=== PATIENT | male | born 1965 ===

== ENCOUNTER 2024-10-17 14:40 | Emergency (ER) | payer OTHER, SELFPAY ==
[2024-10-17 14:48] VITALS: BP 135/62; PULSE 59; RESP 20; TEMP 36.7; O2SAT 98
--- NOTE | 2024-10-17 15:00 | DI.CT_ITS ---
Exam(s) CT HEAD CERVICAL SPINE WO EXAM: CT HEAD CERVICAL SPINE WO CLINICAL HISTORY: anticoagulation, hit head, neck stiffness. TECHNIQUE: Imaging Protocol: Axial computed tomography images with coronal and sagittal reformatted images were created and reviewed COMPARISON: No exams were available for comparison FINDINGS: BRAIN: There is symmetrical developmental thinning of the skull in both parietal regions. There are no skull fractures. There are surgical defects in the medial vasquez of both maxillary sinus es. Right maxillary sinus is clear. There is some mucosal thickening and a small amount of fluid in the left maxillary sinus. Sphenoid and frontal sinuses are clear as are the ethmoidal air cells and mastoid air cells. There is no evidence of intracranial hemorrhage, mass effect, or shift of midline structures. There are no extra-axial fluid collections. The ventricles are not enlarged or shifted and there is no blo od within the ventricular system nor within the basal cisterns. CERVICAL SPINE: There is no evidence of fracture nor listhesis. No significant prevertebral soft tissue swelling. Chronic disc space narrowing at C5-6 and C6-7 levels and Luschka joint osteophytes are noted bilatera lly at these 2 levels as well as smaller Luschka joint osteophytes at C4-5 level. There are advanced degenerative changes in the left facet joints at C4-5. There is no significant facet joint malalignment. No significant osseous lesions evident. IMPRESSION: No acute intracranial findings on this noninfused CT scan of the brain.No acute fractures Paranasal sinus findings as described above. No evidence of cervical spine fracture, malalignment, nor acute compromise of the cervical spinal can al. Multilevel degenerate disc disease and facet arthropathy changes. No fractures Report called by myself to ER 10/17/2024 at 4:05 p.m. RADIATION DOSE DELIVERED: 1,236.23mGy.cm Total DLP DATA REPOSITORY: All CT scans at this facility are submitted to the National Radiology Data Registry (NRDR) Dose Index Registry (DIR) with the [employer] ([employer]). RADIATION OPTIMIZATION: All CT scans at this facility use at least one of these dose optimization te chniques: automated exposure control; mA and/or kV adjustment per patient size (includes targeted exa ms where dose is matched to clinical indication); or iterative reconstruction.
--- NOTE | 2024-10-17 15:07 | ED.GENADUL_ITS ---
Discharge Plan Disposition Patient Disposition: Home Condition: Stable Discharge Details Clinical Impression: Blunt head trauma Primary Care Provider: Peter Brewster ED Provider: Jaswinder Brownlee Home Meds and New Rx's Prescriptions: Continued Eliquis 5 mg tablet 5 mg PO BID Discharge Instructions Instructions: Laceration Repair With Glue ED Additional Instructions: Your imaging did not show any concerning findings, there was no bleeding in the brain. If you are noticing persistent headaches follow-up with your primary care provider. If you feel more ill, have severe worsening pain in your head or high fevers return to the emergency department for reevaluation HPI General Mode of arrival: ambulatory . Date/Time Provider Initiated Documentation: 10/17/24 14:53 . Limitations to Documentation: no limitations . Information obtained by: patient . History of Present Illness 59 year old M presents to the emergency department with the chief complaint of hit on head by ice, described as mild, Quality is described as aching, Patient started experiencing this hour(s) (1) and it has been constant. No relieving factors improve symptom(s), No exacerbating factors reported . Patient notes denies chest pain and shortness of breath. Patient did receive the following treatments prior to arrival, none Related Data Home Medications ?Medication ?Instructions ?Recorded ?Confirmed apixaban 5 mg tablet (Eliquis) 5 mg PO BID 05/04/22 10/17/24 Allergies Allergy/AdvReac Type Severity Reaction Status Date / Time No Known Allergies Allergy Verified 10/17/24 14:51 General Stated Complaint: HeadInjury ROYCE: 3 Review of Systems All systems reviewed & are unremarkable except as noted in HPI and below Constitutional Constitutional: Denies chills, Denies fever(s) and Denies weakness Cardiovascular Cardiovascular: Denies chest pain and Denies dyspnea Respiratory Respiratory: Denies cough and Denies dyspnea Gastrointestinal Gastrointestinal: Denies abdominal pain, Denies nausea and Denies vomiting Integumentary/Breasts Skin/Breast: Denies rash Neurologic Neurologic: Denies weakness Exam Const General: no acute distress Orientation: alert HENMT Head: no palpable skull fracture Ears: external ears normal General nose exam: external nose normal Mouth: moist mucous membranes Eyes General: appearance normal, both eyes and all related structures Conjunctivae: conjunctivae normal Pupils: PERRL Neck Neck: normal visual inspection Resp Effort & Inspection: normal respiratory effort and able to speak in complete sentences Cardio Rate: regular rate GI Palpation: soft and nontender Back/Spine/Pelvis Thoracic/Lumbar Spine: No thoracic spinal tenderness and No lumbar spinal tenderness Skin General skin exam: no rashes or lesions noted Neuro General: patient alert and patient oriented x3 Extrem General: normal to inspection Psych Mental Status: mental status grossly normal Course Vital Signs Vital signs: Vital Signs Temperature 36.7 C 10/17/24 14:48 Pulse 59 L 10/17/24 14:48 Respiratory Rate 20 10/17/24 14:48 Blood Pressure 135/62 10/17/24 14:48 Pulse Oximetry 98 10/17/24 14:48 Temperature 36.7 C 10/17/24 14:48 Pulse 59 L 10/17/24 14:48 Respiratory Rate 20 10/17/24 14:48 Blood Pressure 135/62 10/17/24 14:48 Blood Pressure Position Sitting 10/17/24 14:48 Pulse Oximetry 98 10/17/24 14:48 Oxygen Delivery Method Room Air 10/17/24 14:48 Oxygen Flow Rate 0 10/17/24 14:48 Medical Decision Making 59-year-old male who is on apixaban for prior PE was screwing something into the wall when a piece of ice fell and hit him on the top of his head. He did not have loss of consciousness and did not fall. He has a small what appears to be a 1 cm superficial abrasion on the anterior mid scalp. There is no hematomas. He is ambulatory, GCS of 15. Cranial nerves II through XII are intact. He has no midline C-spine, T or L-spine tenderness though he does state that his neck feels stiff. No chest or abdomen tenderness. I suspect abrasion but given his anticoagulated will obtain CT head given the neck stiffness obtain CT C-spine. Imaging unremarkable, has evidence of sinus disease but has no symptoms of sinusitis do not feel antibiotics are indicated. I cleaned the wound with sterile water and did not feel was large enough to require sutures, I did place some skin adhesive over the wound. He is stable, still has no midline C-spine tenderness full range of motion of his neck. He is stable for discharge and will follow-up with his PCP if any concerns arise and return precautions given Differential Diagnosis Differential Diagnosis: Fracture, contusion, TBI Quality:SDOH Health Related Social Needs: No Data to Display PFSH All Active Problems (Updated 10/17/24 @ 16:42 by Jaswinder Brownlee MD) Blunt head trauma (Acute) Cor pulmonale (Acute) Pulmonary nodule (Acute) Pulmonary embolism (Chronic) Elevated blood pressure reading without diagnosis of hypertension (Acute) Backache (Acute) Degeneration of lumbar intervertebral disc (Acute) Ventral incisional hernia without obstruction or gangrene (Acute) Hernia of anterior abdominal wall (Acute) Disorder of upper respiratory system (Acute) Hyperlipidemia (Acute) Family History (Updated 01/31/22 @ 11:41 by oYli Andres) Father Hypertension Mother Hypertension Other Cancer Social History Smoking risk assessment performed?: No Housing: house
[2024-10-17] MEDS: Lidocaine/Epinephri/Tetracaine Topical Gel 3 ML TP (15:35)
== END 2024-10-17 16:53 | disposition home or self-care (01) ==
PROVIDERS: Emergency Provider Emergency Medicine; PCP Nurse Practitioner Family
DX: S01.81XA Laceration without foreign body of other part of head, initial encounter (principal); W20.8XXA Other cause of strike by thrown, projected or falling object, initial encounter
CPT/HCPCS: 12001; 99284; 70450; 72125